=== PATIENT | male | born 2005 ===

== ENCOUNTER 2025-02-02 11:08 | Emergency (ER) | payer BC, SELFPAY ==
--- NOTE | 2025-02-02 11:10 | DI.RAD.S_ITS ---
PROCEDURE: XR CHEST 1V INDICATIONS: Chest Pain TECHNIQUE: One view of the chest was acquired. COMPARISON: None. FINDINGS: Surgical changes and devices: None. Lungs and pleura: Lungs are clear. No pleural effusions or pneumothorax. Mediastinum: Mediastinal contours appear normal. Heart size is normal. Bones and chest wall: No suspicious bony lesions. Overlying soft tissues appear unremarkable. IMPRESSION: No acute cardiopulmonary abnormality is seen. Dictated by: Ran Evans M.D. on 02/02/2025 at 11:27 Approved by: Ran Evans M.D. on 02/02/2025 at 11:29
--- NOTE | 2025-02-02 11:13 | EKG_ITS ---
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
[2025-02-02 11:15] VITALS: BP 129/73; PULSE 97; RESP 18; TEMP 37.6; O2SAT 94; BMI 30.4
[2025-02-02 11:27] LABS: Add Manual Diff / Slide Review NO; Basophils Absolute Auto 0 /uL (0-100); Basophils Percent Auto 0.2 % (0-2); Eosinophils Absolute Auto 100 /uL (0-450); Eosinophils Percent Auto 0.4 % (2-4); Hematocrit 46.6 % (41-53); Hemoglobin 16.4 g/dL (13.5-17.5); Lymphocytes Absolute Auto 400 /uL (1100-4500); Lymphocytes Percent Auto 3.5 % (25-40); Mean Corpuscular HGB Conc 35.2 % (30-36); Mean Corpuscular Hemoglobin 30.1 PG (26-34); Mean Corpuscular Volume 85.6 fL (80-100); Monocytes Absolute Auto 800 /uL (0-900); Monocytes Percent Auto 6.8 % (3-14); Neutrophils Absolute Auto 10900 /uL (1500-7000); Neutrophils Percent Auto 89.1 % (50-75); Platelet Count 230 X10^3/uL (150-400); Red Blood Cell Count 5.44 X10^6/uL (4.5-5.9); Red Cell Distribution Width 12.8 % (11.6-14.8); White Blood Cell Count 12.2 X10^3/uL (4.5-11.0)
[2025-02-02 11:34] LABS: INR 1.1 (0.9-1.3); Prothrombin Time 12.6 SECONDS (9.4-12.5)
[2025-02-02 11:37] LABS: Alanine Aminotransferase 27 IU/L (<50); Albumin 4.9 g/dL (3.5-5.0); Albumin Globulin Ratio 1.6 (1.0-2.8); Alkaline Phosphatase 85 U/L (38-126); Aspartate Aminotransferase 38 IU/L (17-59); BUN Creatinine Ratio 17.2 (6-22); Blood Urea Nitrogen 16 mg/dL (9-20); Calcium 9.6 mg/dL (8.4-10.2); Carbon Dioxide 24 mmol/L (22-32); Chloride 102 mmol/L (98-107); Creatine Kinase 265 U/L (55-170); Estimated Glomerular Filt Rate > 60 mL/min (>60); Globulin 3.1 g/dL (1.7-4.1); Glucose 113 mg/dL (70-99); HEMOLYSIS < 15 (0-50); Lipase 58 U/L (23-300); Magnesium 1.7 mg/dL (1.6-2.3); PTT Partial Thromboplastin Tim 32 SECONDS (25.1-36.5); Potassium 4.4 mmol/L (3.4-5.1); Sodium 137 mmol/L (137-145)
[2025-02-02 11:38] LABS: Lactate (Lactic Acid) 0.8 mmol/L (0.7-2.1)
--- NOTE | 2025-02-02 11:41 | ED_ITS ---
HPI - Syncope <Pattie Barajas PA-C - Last Filed: 02/02/25 14:12> General Chief Complaint: Syncope Stated Complaint: head trauma WIC fell in shower Time Seen by Provider: 02/02/25 11:27 Source: patient and family Mode of arrival: Wheelchair History of Present Illness HPI narrative: 19-year-old male with no reported past medical history presents to the ED status post a syncopal experienced just prior to arrival. Patient states that he has had URI symptoms for 4 days now, including rhinorrhea, sneezing, cough. No fever, chest pain, shortness of breath, abdominal pain, dysuria, diarrhea. This morning, patient was very nauseous, went in to take a shower, syncopized, hit his head. Patient states he was out out for very long. Patient also experienced an episode of vomiting bite after. Since then, patient is complaining of a headache and nausea. Related Data Allergies Allergy/AdvReac Type Severity Reaction Status Date / Time No Known Drug Allergies Allergy Verified 02/02/25 11:15 Review of Systems <Pattie Barajas PA-C - Last Filed: 02/02/25 14:12> Constitutional Constitutional: Denies chills, Denies fatigue, Denies fever(s), Denies frequent falls, Reports headache(s), Denies lethargy and Denies weakness Eyes Eyes: Denies change in vision, Denies eye discharge, Denies irritation and Denies loss of vision ENT Ears, Nose, Mouth, and Throat: Denies change in voice, Denies dizziness, Reports headache(s), Reports nasal congestion, Reports nasal discharge, Denies neck pain, Denies sore throat and Denies throat swelling Cardiovascular Cardiovascular: Denies chest pain, Denies irregular heart rhythm, Denies lightheadedness, Denies palpitations, Denies dyspnea, Denies dyspnea on exertion and Denies orthopnea Respiratory Respiratory: Reports cough, Denies dyspnea, Denies dyspnea on exertion and Denies wheezing Gastrointestinal Gastrointestinal: Denies abdominal pain, Denies change in bowel habits, Denies diarrhea, Reports nausea and Reports vomiting Musculoskeletal Musculoskeletal: Denies neck pain and Denies numbness Integumentary/Breasts Skin/Breast: Denies pruritus, Denies erythema, Denies rash and Denies wounds Neurologic Neurologic: Denies behavioral changes, Denies confusion, Denies dizziness, Denies frequent falls, Reports headache(s), Denies loss of vision, Denies numbness and Denies weakness Psychiatric Psychiatric: Denies anxiety, Denies behavioral changes, Denies confusion, Denies depression, Denies homicidal ideation and Denies suicidal ideation Endocrine Endocrine: Denies fatigue, Denies flushing and Denies palpitations Hematologic/Lymphatic Hematologic/Lymphatic: Denies easy bruising Allergic/Immunologic Allergic/Immunologic: Denies urticaria, Denies throat swelling and Denies wheezing Patient History <Pattie Barajas PA-C - Last Filed: 02/02/25 14:12> Social History Smoking Status: Never smoker Smoking Status: Never smoker Exam <Pattie Barajas PA-C - Last Filed: 02/02/25 14:12> Narrative Exam Narrative: Const General:?cooperative, healthy appearing and comfortable HENKY Head:?normal to inspection Ears:?hearing grossly normal bilaterally Nose:?external nose normal Face and sinus:?normal facial exam and sinuses nontender Mouth:?oral mucosae normal Throat:?posterior oropharynx normal Eyes General:?appearance normal, both eyes and all related structures Neck Neck:?normal visual inspection and no lymphadenopathy noted Resp Effort & Inspection:?normal respiratory effort Auscultation:?clear to auscultation bilaterally Cardio Rate:?regular rate Rhythm:?regular rhythm Neuro General:?patient alert, patient awake and patient oriented x3 Initial Vital Signs Initial Vital Signs: Vital Signs Temperature 99.7 F H 02/02/25 11:15 Pulse Rate 97 H 02/02/25 11:15 Respiratory Rate 18 02/02/25 11:15 Blood Pressure 129/73 02/02/25 11:15 Pulse Oximetry 94 02/02/25 11:15 Oxygen Delivery Method Room Air 02/02/25 11:15 <Gabby Blanton DO - Last Filed: 02/06/25 07:50> Initial Vital Signs Initial Vital Signs: Vital Signs Temperature 99.7 F H 02/02/25 11:15 Pulse Rate 97 H 02/02/25 11:15 Respiratory Rate 18 02/02/25 11:15 Blood Pressure 129/73 02/02/25 11:15 Pulse Oximetry 94 02/02/25 11:15 Oxygen Delivery Method Room Air 02/02/25 11:15 Course <Pattie Barajas PA-C - Last Filed: 02/02/25 14:12> Orders Ordered: Discontinued Medications Acetaminophen (Acetaminophen 325 Mg Tablet) 975 mg PO NOW ONE Stop: 02/02/25 11:54 Last Admin: 02/02/25 12:05 Dose: 975 mg Documented By: ES Sodium Chloride (Normal Saline 0.9%) 1,000 mls @ 1,000 mls/hr IV BOLUS ONE Stop: 02/02/25 12:52 Last Infusion: 02/02/25 12:48 Dose: Infused Documented By: Admin: 02/02/25 12:06 Dose: 1,000 mls/hr Documented By: ES Ketorolac Tromethamine (Ketorolac 30 Mg/Ml Vial) 15 mg IV NOW ONE Stop: 02/02/25 11:54 Last Admin: 02/02/25 12:06 Dose: 15 mg Documented By: ES Metoclopramide HCl (Metoclopramide 10 Mg/2 Ml Inj) 10 mg IV NOW ONE Stop: 02/02/25 11:54 Last Admin: 02/02/25 12:07 Dose: 10 mg Documented By: ES Vital Signs Vital signs: Vital Signs - 8 hr 02/02/25 11:15 02/02/25 12:09 02/02/25 13:01 Temperature 99.7 F H 100.8 F H Pulse Rate 97 H 103 H 85 Respiratory Rate 18 18 18 Blood Pressure 129/73 121/73 115/70 Pulse Oximetry 94 95 95 Oxygen Delivery Method Room Air Room Air Room Air <Gabby Blanton DO - Last Filed: 02/06/25 07:50> Orders Ordered: Discontinued Medications Acetaminophen (Acetaminophen 325 Mg Tablet) 975 mg PO NOW ONE Stop: 02/02/25 11:54 Last Admin: 02/02/25 12:05 Dose: 975 mg Documented By: ES Sodium Chloride (Normal Saline 0.9%) 1,000 mls @ 1,000 mls/hr IV BOLUS ONE Stop: 02/02/25 12:52 Last Infusion: 02/02/25 12:48 Dose: Infused Documented By: Admin: 02/02/25 12:06 Dose: 1,000 mls/hr Documented By: ES Ketorolac Tromethamine (Ketorolac 30 Mg/Ml Vial) 15 mg IV NOW ONE Stop: 02/02/25 11:54 Last Admin: 02/02/25 12:06 Dose: 15 mg Documented By: [place] Metoclopramide HCl (Metoclopramide 10 Mg/2 Ml Inj) 10 mg IV NOW ONE Stop: 02/02/25 11:54 Last Admin: 02/02/25 12:07 Dose: 10 mg Documented By: [place] Vital Signs Vital signs: Vital Signs - 8 hr 02/02/25 11:15 02/02/25 12:09 02/02/25 13:01 Temperature 99.7 F H 100.8 F H Pulse Rate 97 H 103 H 85 Respiratory Rate 18 18 18 Blood Pressure 129/73 121/73 115/70 Pulse Oximetry 94 95 95 Oxygen Delivery Method Room Air Room Air Room Air MDM - Syncope <Pattie Barajas PA-C - Last Filed: 02/02/25 14:12> Lab Data 02/02/25 11:15 02/02/25 11:15 Labs: Lab Results 02/02/25 Range/Units 11:15 WBC 12.2 H (4.5-11.0) X10^3/uL RBC 5.44 (4.5-5.9) X10^6/uL Hgb 16.4 (13.5-17.5) g/dL Hct 46.6 (41-53) % MCV 85.6 (80-100) fL MCH 30.1 (26-34) PG MCHC 35.2 (30-36) % RDW 12.8 (11.6-14.8) % Plt Count 230 (150-400) X10^3/uL Neut % (Auto) 89.1 H (50-75) % Lymph % (Auto) 3.5 L (25-40) % [place] % (Auto) 6.8 (3-14) % Eos % (Auto) 0.4 L (2-4) % Baso % (Auto) 0.2 (0-2) % Neut # (Auto) 22803 H (7348-3835) /uL Lymph # (Auto) 400 L (5770-8784) /uL [place] # (Auto) 800 (0-900) /uL Eos # (Auto) 100 (0-450) /uL Baso # (Auto) 0 (0-100) /uL PT 12.6 H (9.4-12.5) SECONDS INR 1.1 (0.9-1.3) APTT 32 (25.1-36.5) SECONDS Sodium 137 (137-145) mmol/L Potassium 4.4 (3.4-5.1) mmol/L Chloride 102 (98-107) mmol/L Carbon Dioxide 24 (22-32) mmol/L BUN 16 (9-20) mg/dL Creatinine 0.93 (0.66-1.25) mg/dL Estimated GFR > 60 (>60) mL/min BUN/Creatinine Ratio 17.2 (6-22) Glucose 113 H (70-99) mg/dL Lactate 0.8 (0.7-2.1) mmol/L Calcium 9.6 (8.4-10.2) mg/dL Magnesium 1.7 (1.6-2.3) mg/dL Total Bilirubin 1.0 (0.2-1.3) mg/dL AST 38 (17-59) IU/L ALT 27 (<50) IU/L Alkaline Phosphatase 85 (38-126) U/L Total Creatine Kinase 265 H (55-170) U/L Troponin I < 0.012 (0.01-0.034) ng/mL NT-Pro-B Natriuret Pep < 20 (<125) pg/mL Total Protein 8.0 (6.3-8.2) g/dL Albumin 4.9 (3.5-5.0) g/dL Globulin 3.1 (1.7-4.1) g/dL Albumin/Globulin Ratio 1.6 (1.0-2.8) Lipase 58 (23-300) U/L [facility] Narrative Medical decision making narrative: 19-year-old male with no reported past medical history presents to the ED status post a syncopal experienced just prior to arrival. Syncope workup obtained. Chest x-ray is without acute cardiopulmonary findings. EKG is normal sinus rhythm with no acute ST-T changes, no axis deviation. WBC mildly elevated at 12.2. All other labs within normal limits. Troponin and BNP within normal limits. Glucose normal at 113. Patient endorses feeling somewhat dehydrated. Will give IV fluids, Reglan, Toradol, Tylenol for symptoms. Patient's symptoms are most consistent with the URI. Will re-evaluate. Headache responded well to medications and fluids. Patient feels well, agrees to continue hydrating at home. Patient can also continue [id number] cough and cold medicines as needed. ED return precautions discussed with patient. Patient verbalized understanding. Medical records reviewed: Yes <Gabby Blanton, - Last Filed: 02/06/25 07:50> Lab Data Labs: Lab Results 02/02/25 Range/Units 11:15 WBC 12.2 H (4.5-11.0) X10^3/uL RBC 5.44 (4.5-5.9) X10^6/uL Hgb 16.4 (13.5-17.5) g/dL Hct 46.6 (41-53) % MCV 85.6 (80-100) fL MCH 30.1 (26-34) PG MCHC 35.2 (30-36) % RDW 12.8 (11.6-14.8) % Plt Count 230 (150-400) X10^3/uL Neut % (Auto) 89.1 H (50-75) % Lymph % (Auto) 3.5 L (25-40) % [place] % (Auto) 6.8 (3-14) % Eos % (Auto) 0.4 L (2-4) % Baso % (Auto) 0.2 (0-2) % Neut # (Auto) 80844 H (5961-3600) /uL Lymph # (Auto) 400 L (0880-7317) /uL [place] # (Auto) 800 (0-900) /uL Eos # (Auto) 100 (0-450) /uL Baso # (Auto) 0 (0-100) /uL PT 12.6 H (9.4-12.5) SECONDS INR 1.1 (0.9-1.3) APTT 32 (25.1-36.5) SECONDS Sodium 137 (137-145) mmol/L Potassium 4.4 (3.4-5.1) mmol/L Chloride 102 (98-107) mmol/L Carbon Dioxide 24 (22-32) mmol/L BUN 16 (9-20) mg/dL Creatinine 0.93 (0.66-1.25) mg/dL Estimated GFR > 60 (>60) mL/min BUN/Creatinine Ratio 17.2 (6-22) Glucose 113 H (70-99) mg/dL Lactate 0.8 (0.7-2.1) mmol/L Calcium 9.6 (8.4-10.2) mg/dL Magnesium 1.7 (1.6-2.3) mg/dL Total Bilirubin 1.0 (0.2-1.3) mg/dL AST 38 (17-59) IU/L ALT 27 (<50) IU/L Alkaline Phosphatase 85 (38-126) U/L Total Creatine Kinase 265 H (55-170) U/L Troponin I < 0.012 (0.01-0.034) ng/mL NT-Pro-B Natriuret Pep < 20 (<125) pg/mL Total Protein 8.0 (6.3-8.2) g/dL Albumin 4.9 (3.5-5.0) g/dL Globulin 3.1 (1.7-4.1) g/dL Albumin/Globulin Ratio 1.6 (1.0-2.8) Lipase 58 (23-300) U/L Imaging Data Chest x-ray: Radiologist's Impression: PROCEDURE: XR CHEST 1V INDICATIONS: Chest Pain TECHNIQUE: One view of the chest was acquired. COMPARISON: None. FINDINGS: Surgical changes and devices: None. Lungs and pleura: Lungs are clear. No pleural effusions or pneumothorax. Mediastinum: Mediastinal contours appear normal. Heart size is normal. Bones and chest wall: No suspicious bony lesions. Overlying soft tissues appear unremarkable. IMPRESSION: No acute cardiopulmonary abnormality is seen. Dictated by: Ran Evans M.D. on 02/02/2025 at 11:27 ECG Data Attestation: I personally reviewed and interpreted this ECG as follows: Prior ECG tracings: available for review Interpretation: Normal sinus rhythm 94 CT 42 QRS [address] changes or T-wave inversions Discharge Plan Departure Patient Disposition: Home Clinical Impression: Syncope Qualifiers: Syncope type: unspecified Qualified Code(s): R55 - Syncope and collapse Instructions: DI for Syncope in Adults (Fainting) Activity Restrictions/Additional Instructions: You were evaluated in the ED today for fainting, headache. Your chest x-ray, EKG and labs were normal. It appears that your symptoms are most likely related to the cold that you have been experiencing over the past few days. Dehydration can also cause you to faint and have a headache. You were given some medications for your headache and IV fluids. It appears that your symptoms improved significantly with the medications. It is important that you stay well hydrated at home. You may take [id number] cough and cold remedies. Return to the ED if you have worsening symptoms. Stand Alone Forms: Patient Portal/API/Survey ED Sign-out <Gabby Blanton DO - Last Filed: 02/06/25 07:50> Cosign ED Attending Cosignature Attestation: I was available for consultation.
[2025-02-02 11:49] LABS: NT-proBNP (BNP-Adult 18+) < 20 pg/mL (<125); Troponin I < 0.012 ng/mL (0.01-0.034)
[2025-02-02] MEDS: ACETAMINOPHEN 325 MG TABLET 975 MG PO (12:05)
[2025-02-02] MEDS: KETOROLAC 30 MG/ML VIAL 15 MG IV (12:06)
[2025-02-02] MEDS: SODIUM CHLORIDE 0.9% 1,000 ML 1000 ML IV (12:06)
[2025-02-02] MEDS: METOCLOPRAMIDE 10 MG/2 ML INJ IV (12:07)
[2025-02-02 12:09] VITALS: BP 121/73; PULSE 103; RESP 18; O2SAT 95
[2025-02-02 13:01] VITALS: BP 115/70; PULSE 85; RESP 18; TEMP 38.2; O2SAT 95
== END 2025-02-02 13:04 | disposition home or self-care (01) ==
PROVIDERS: Emergency Medicine; Emergency Provider Student in an Organized Health Care Education/Training Program
DX: R55 Syncope and collapse (principal); S09.90XA Unspecified injury of head, initial encounter; W18.2XXA Fall in (into) shower or empty bathtub, initial encounter
CPT/HCPCS: 36415; 71045; 80053; 82550; 83605; 83690; 83735; 83880; 84484; 85025; 85610; 85730; 93005; 93010; 96361; 96374; 96375; 99284; J1885; J2765